=== PATIENT | female | born 1945 | race Hispanic/Latino ===

== ENCOUNTER 2016-11-14 08:44 | Outpatient (CLI) | payer MEDICARE ==
[2016-11-14 09:31] LABS: Blood Urea Nitrogen 14 mg/dL (7-17)
--- NOTE | 2016-11-14 10:47 | Cat Scan Report ---
CT of the chest without contrast. History: Unresolving pneumonia, COPD. Findings: Severe emphysematous changes are seen, most pronounced in the upper lobes. No focal infiltrates or pulmonary masses are seen. There is no pleural fluid. Dense calcification is seen in the aortic arch but no aneurysmal dilatation is seen. No mediastinal or hilar abnormalities are seen. Impression: Severe COPD with no acute findings.
== END 2016-11-14 08:45 | disposition home or self-care (01) ==
LOC: CT 08:44
PROVIDERS: ATTEND Specialist
DX: J44.9 Chronic obstructive pulmonary disease, unspecified (principal); J18.9 Pneumonia, unspecified organism; I70.0 Atherosclerosis of aorta; I10 Essential (primary) hypertension; E11.9 Type 2 diabetes mellitus without complications; Z87.891 Personal history of nicotine dependence
CPT/HCPCS: 36415; 71250; 82565; 84520

== ENCOUNTER 2017-01-10 15:10 | Emergency (ER) | payer MEDICARE ==
[2017-01-10] MEDS ORDERED: DECADRON IM ONE (17:42)
[2017-01-10] MEDS ORDERED: MORPHINE IM ONE (17:42)
--- NOTE | 2017-01-10 17:45 | Emergency Department Report ---
HPI - General Chief Complaint: Back Pain/Injury - HPI HPI: This is a 71-year-old female who presents to ED complaining of left shoulder pain that started this morning. Patient states she has surgeon that shoulder about 6 years ago. Patient states he is pain management doctor Dr. cox who has muscle relaxer, hydromorphone. Patient states she took that pain medicine earlier this morning did not help with her pain. Patient denies any chest pain, shortness of breath, loss of sensation in the arm or loss of function. ED Past Medical Hx - Past Medical History Hx Hypertension: Yes Hx Diabetes: Yes Hx Renal Disease: No Hx Arthritis: Yes Hx Asthma: No Hx COPD: Yes (USES PRN) Hx Tuberculosis: No Hx HIV: No - Surgical History Past Surgical History?: Yes Hx Cholecystectomy: Yes (1983) Additional Surgical History: left shoulder and wrist surgery, right foot surgery - Social History Smoking Status: Former Smoker Substance Use Type: None - Medications Home Medications: Home Medications Medication Instructions Recorded Confirmed Last Taken Type Hydrocodone Bit/Acetaminophen 1 each PO DAILY #10 tablet 12/22/12 01/02/1401/01 Rx [Lortab 5-500 Tablet] ALBUTEROL Inhaler [ProAir HFA 2 puff IH QID PRN 05/31/13 12/31/13 Unknown History Inhaler] Ipratropium/Albuterol Sulfate 2 inhalation INHALATION PRN 05/31/13 01/02/14 History [Combivent Respimat] Lisinopril [Zestril TAB] 20 mg PO QDAY 05/31/13 01/02/14 12/28/13 History Simvastatin [Zocor TAB] 40 mg PO QHS 05/31/13 01/02/14 01/01/14 History glipiZIDE [glipiZIDE ER] 1 tab PO DAILY 05/31/13 01/02/14 01/01/14 History Bimatoprost 0.01%(Nf) [Lumigan 1 drop OU DAILY 12/31/13 01/02/14 01/01/14 History 0.01%(Nf)] Unoprostone Isopropyl [Rescula] 1 drop OU BID 12/31/13 01/02/14 01/01/14 History Omeprazole [PriLOSEC] 40 mg PO DAILY #30 capsule. 01/02/14 Unknown Rx Diclofenac (Nf) 50 mg PO BID #30 tablet. 01/10/17 Unknown Rx predniSONE [Deltasone] 20 mg PO QDAY #10 tab 01/10/17 Unknown Rx ED Review of Systems ROS: Stated complaint: RT SHOULDER PAIN Other details as noted in HPI Constitutional: denies: chills, fever Eyes: denies: eye pain, eye discharge, vision change ENT: denies: ear pain, throat pain Respiratory: denies: cough, shortness of breath, wheezing Cardiovascular: denies: chest pain, palpitations Endocrine: no symptoms reported Gastrointestinal: denies: abdominal pain, nausea, diarrhea Genitourinary: denies: urgency, dysuria, frequency, discharge Musculoskeletal: arthralgia. denies: back pain, joint swelling Skin: denies: rash, lesions, pruritus Neurological: denies: headache, weakness, paresthesias Psychiatric: denies: anxiety, depression Hematological/Lymphatic: denies: easy bleeding, easy bruising Physical Exam - Physical Exam Vital Signs: Vital Signs 01/10/17 16:07 Temperature 98.3 F Pulse Rate 69 Respiratory 16 Rate Blood Pressure 129/60 O2 Sat by Pulse 98 Oximetry Physical Exam: GENERAL: Alert and oriented x3, no apparent distress, Normal Gait, atraumatic. NECK: Supple. Non edematous, No carotid bruits. No lymphadenopathy or thyromegaly. No C-spine tenderness LUNGS: Symetrical with respiration, No wheezing, no rales or crackles, CTAB. HEART: S1, S2 present, regular rate and rhythm without murmur, no rubs, no gallops. Non tender to palpation ABDOMEN: No organomegaly was noted,Positive bowel sounds, soft, and non- distended. . Nontender to palpation on all Quadrants, NO CVA tenderness. BACK: Full range of motion, no spinal tenderness, nontender to palpation. EXTREMITIES/MUSCULOSKELETAL: No cyanosis, clubbing, rash, lesions or edema. Full ROM bilaterally. UE/LE Pulses 2+ bilaterally. LE and UE 5+ strength bilaterally, straight leg raise negative bilaterally NEUROLOGIC: The patient is cooperative with no focal neurologic deficits. Cranial nerves II through XII are grossly intact. Normal speech. Normal sensation in bilateral upper and lower extremities, No loss of sensation, PSYCHIATRIC: Mood is congruent with affect, denies suicidal or homicidal ideations. SKIN: Warm and dry, No lesions, No ulceration or induration present. ED Course Vital Signs 01/10/17 16:07 Temperature 98.3 F Pulse Rate 69 Respiratory 16 Rate Blood Pressure 129/60 O2 Sat by Pulse 98 Oximetry ED Medical Decision Making - Medical Decision Making 71 y o female presents with left shoulder back pain ED course: Patient received morphine and Decadron ED. X-rays shows no abnormality no fracture and no location. I discussed findings with the patient and her son. Since patient exhibits no signs of shortness of breath chest pain or any other direct symptoms I'm sending patient home with pain management of emesis. Patient states she takes h10/325 percocet at home and P.m.P shows she received prescription on 01/05/2017 120 tablets of Percocet Critical care attestation.: If time is entered above; I have spent that time in minutes in the direct care of this critically ill patient, excluding procedure time. ED Disposition Clinical Impression: Pain of left scapula Disposition: DC-01 TO HOME OR SELFCARE Is pt being admited?: No Does the pt Need Aspirin: No Condition: Stable Instructions: Cervical Radiculopathy (ED), Arthralgia (ED), Shoulder Sprain (ED ) Additional Instructions: Follow-up [facility] orthopedic doctor. If you have worsening symptoms or new onset of symptoms was returned to the ED immediately. Please to give medication as prescribed. Prescriptions: Diclofenac Dr (Nf) 50 mg PO BID #30 tablet. predniSONE [Deltasone] 20 mg PO QDAY #10 tab Referrals: PRIMARY CAREMD [Primary Care Provider] - 3-5 Days LIDA MCCLAIN MD [Staff Physician] - 3-5 Days PA PAZ MD [Staff Physician] - 3-5 Days Forms: Accompanied Note Time of Disposition: 18:58
--- NOTE | 2017-01-10 19:10 | XRay Report ---
FINAL REPORT PROCEDURE: XR SHOULDER 2+V LT TECHNIQUE: LEFT shoulder radiographs including AP views in internal and external rotation and transthoracic/scapular Y-views.. CPT 66815 HISTORY: shoulder pain COMPARISON: No prior studies are available for comparison. FINDINGS: Fracture (s) and/or Dislocation(s): None . Joint space(s): Plate with interlocking screws spans proximal humerus. Slight lucency and offset at the surgical neck of the humerus. Subchondral cysts in the greater tuberosity. Glenohumeral osteophytes. Mild narrowing of the acromioclavicular joint. Moderate thoracic kyphosis with significantly decreased lung volumes. Soft tissues: Normal . Bone mineralization: Osteopenia. Foreign bodies: None . IMPRESSION: Postsurgical and degenerative changes of the left shoulder. Slight offset at the surgical neck, difficult to exclude acute/subacute injury or mal/non union. Consider correlating with date of surgery/injury. It would be helpful to directly compare with prior radiographs if available. Also consider followup radiographs if there is continued clinical concern. Significant thoracic kyphosis with significantly decreased lung volumes, consider correlation with chest radiograph.
[2017-01-10 19:12] VITALS: BP 122/76
== END 2017-01-10 19:11 | disposition home or self-care (01) ==
LOC: ED 15:10
DX: M25.512 Pain in left shoulder (principal); I10 Essential (primary) hypertension; E11.9 Type 2 diabetes mellitus without complications; M19.90 Unspecified osteoarthritis, unspecified site; J44.9 Chronic obstructive pulmonary disease, unspecified; Z87.891 Personal history of nicotine dependence; Z90.49 Acquired absence of other specified parts of digestive tract
CPT/HCPCS: 73030; 93005; 93010; 96372; 99283; J1100; J2270